=== PATIENT | male | born 1970 | race Two or more races ===

== ENCOUNTER 2020-07-28 19:28 | Inpatient (IN) | payer OTHER ==
[~2020-07-28] VITALS: Ht 172.7 cm; Wt 91.6 kg
[2020-07-28] MEDS ORDERED: ZINC SULFATE 220mg CAP or TAB PO ONE (19:45)
[2020-07-28] MEDS ORDERED: methylPREDNISolone SOD SUCC 125 MG/2 ML VL IV ONE (19:45)
[2020-07-28] MEDS ORDERED: CHOLECALCIFEROL (VITD3) 2,000 UNIT CAP PO ONE (19:45)
[2020-07-28] MEDS ORDERED: AZITHROMYCIN 500MG/ 250ML 250 ML IV ONE (19:45)
[2020-07-28] MEDS ORDERED: ASCORBIC ACID 500 MG TAB PO ONE (19:45)
[2020-07-28] MEDS ORDERED: REMDESIVIR PER PHARMACY 0 ML IV SCH (19:45)
[2020-07-28] MEDS ORDERED: ACETAMINOPHEN 650 mg PER 20.3 mL UD ONE (19:50)
[2020-07-28] MEDS ORDERED: ACETAMINOPHEN 650 mg PER 20.3 mL UD PO ONE (21:00)
[2020-07-28 21:13] LABS: Basophils # (auto) 0 10 ^3/uL (0-0.2); Basophils % (auto) 0.2 % (0.0-2.0); Eosinophils # (auto) 0 10 ^3/uL (0-0.8); Hematocrit 40.2 % (41.0-53.0); Hemoglobin 14.6 g/dL (13.5-17.5); Lymphocytes # (auto) 0.4 10 ^3/uL (0.4-5.4); Lymphocytes % (auto) 4.3 % (10.0-50.0); Mean Corpuscular Hemoglobin 31.8 pg (28.0-32.0); Mean Corpuscular Hgb Conc. 36.2 g/dL (32.0-36.0); Mean Corpuscular Volume 87.9 fL (80.0-100.0); Monocytes # (auto) 0.5 10 ^3/uL (0-1.3); Monocytes % (auto) 6.2 % (0.0-12.0); Neutrophils # (auto) 7.4 10 ^3/uL (1.6-8.6); Neutrophils % (auto) 89.3 % (37.0-80.0); Nucleated Red Blood Cells % 0.1 %; Platelet Count (auto) 220 10^3/uL (140-450); Red Blood Cells 4.57 10^6/uL (4.5-5.90); Red Cell Distribution Width 13.2 % (11.8-14.3); White Blood Cell 8.3 10^3/uL (4.4-10.8)
[2020-07-28 21:32] LABS: Albumin 2.6 g/dL (3.4-5.0); Anion Gap 8 (5-15); Blood Urea Nitrogen 11 mg/dL (7-18); Calcium 8.5 mg/dL (8.5-10.1); Carbon Dioxide 26 mmol/L (21-32); Chloride 93 mmol/L (98-107); Glucose 362 mg/dL (74-106); Potassium 3.2 mmol/L (3.5-5.1); Sodium 127 mmol/L (136-145)
[2020-07-28 21:41] LABS: Alanine Aminotransferase 58 U/L (16-61); Alkaline Phosphatase 68 U/L (45-117); Aspartate Aminotransferase 76 U/L (15-37); BUN/Creatinine Ratio 12.4; Bilirubin, Total 0.6 mg/dL (0.2-1.0); GFR African American 117 mL/min; GFR Non-African American 97 mL/min; Total Protein 6.7 g/dL (6.4-8.2)
[2020-07-28 21:42] LABS: CRP High Sensitivity > 19 mg/dL (< 0.3)
[2020-07-28] MEDS ORDERED: ONDANSETRON HCL 4 MG/2 ML VIAL IV PRN (21:45)
[2020-07-28] MEDS ORDERED: NITROGLYCERIN 0.4 MG SL TAB SL PRN (21:45)
[2020-07-28] MEDS ORDERED: ACETAMINOPHEN 500 MG TAB PO PRN ×2 (21:45)
[2020-07-28] MEDS ORDERED: DEXTROSE (50%) 50ML SYRG IV PRN ×2 (21:45→23:15)
[2020-07-28] MEDS ORDERED: LORazepam 0.5 MG TAB PO PRN (21:45)
[2020-07-28] MEDS ORDERED: INSULIN LANTUS (GLARGINE) 1 /0.01ml (100units/ml) SC ONE (21:45)
[2020-07-28] MEDS ORDERED: MORPHINE SULF INJ 2 MG/ML SYRINGE 1ML IV PRN (21:45)
[2020-07-28] MEDS ORDERED: DOCUSATE CALCIUM 240 MG CAP PO PRN (21:45)
[2020-07-28] MEDS ORDERED: hydrALAZINE HCL 20 MG/ML VL IV PRN (21:45)
[2020-07-28] MEDS ORDERED: InsuLIN R (HUMAN) 100 UNITS in SODIUM CHL 0.9% 99 ML IV SCH (21:45)
[2020-07-28] MEDS: DOXYCYCLINE 100MG/250ML 250 ML IV SCH (22:00)
[2020-07-28] MEDS: BUDESONIDE (INHALATION) 180 MCG IH IN SCH (22:00)
[2020-07-28] MEDS: ENOXAPARIN SOD 40 MG/0.4 ML SYRINGE SC SCH (22:00)
[2020-07-28] MEDS: SODIUM CHLORIDE 0.9% 1,000 ML IV SCH (22:15)
[2020-07-28] MEDS ORDERED: SODIUM CHLORIDE 0.9% 1,000 ML IV ONE (22:15)
[2020-07-28] MEDS ORDERED: ACCU-CHEK COMFORT CURVE STRIP VI SCH (22:30)
[2020-07-28] MEDS ORDERED: POTASSIUM CHL 20 Meq TABLET PO ONE (23:15)
[2020-07-29] MEDS: InsuLIN REG 1unit/0.01ml Soln (100units/ml) SC SCH ×6 (04:07→20:19)
[2020-07-29] MEDS: ACCU-CHEK COMFORT CURVE STRIP VI SCH ×6 (04:07→20:17)
[2020-07-29 07:05] LABS: Basophils # (auto) 0 10 ^3/uL (0-0.2); Basophils % (auto) 0.1 % (0.0-2.0); Eosinophils # (auto) 0 10 ^3/uL (0-0.8); Hematocrit 43.3 % (41.0-53.0); Hemoglobin 15.3 g/dL (13.5-17.5); Lymphocytes # (auto) 0.4 10 ^3/uL (0.4-5.4); Lymphocytes % (auto) 4.8 % (10.0-50.0); Mean Corpuscular Hemoglobin 31.3 pg (28.0-32.0); Mean Corpuscular Hgb Conc. 35.3 g/dL (32.0-36.0); Mean Corpuscular Volume 88.9 fL (80.0-100.0); Monocytes # (auto) 0.3 10 ^3/uL (0-1.3); Monocytes % (auto) 3.1 % (0.0-12.0); Neutrophils # (auto) 7.7 10 ^3/uL (1.6-8.6); Nucleated Red Blood Cells % 0.3 %; Platelet Count (auto) 222 10^3/uL (140-450); Red Blood Cells 4.87 10^6/uL (4.5-5.90); Red Cell Distribution Width 13.3 % (11.8-14.3); White Blood Cell 8.4 10^3/uL (4.4-10.8)
[2020-07-29 07:37] LABS: Chloride 102 mmol/L (98-107); Potassium 3.7 mmol/L (3.5-5.1); Sodium 134 mmol/L (136-145)
[2020-07-29 07:56] LABS: Alanine Aminotransferase 67 U/L (16-61); Albumin 2.4 g/dL (3.4-5.0); Alkaline Phosphatase 70 U/L (45-117); Anion Gap 5 (5-15); Aspartate Aminotransferase 85 U/L (15-37); BUN/Creatinine Ratio 14.3; Bilirubin, Total 0.4 mg/dL (0.2-1.0); Blood Urea Nitrogen 10 mg/dL (7-18); Calcium 8.4 mg/dL (8.5-10.1); Carbon Dioxide 27 mmol/L (21-32); GFR African American 155 mL/min; GFR Non-African American 128 mL/min; Glucose 230 mg/dL (74-106); Lactate Dehydrogenase 753 U/L (87-241); Magnesium 2.1 mg/dL (1.6-2.6); Total Protein 6.7 g/dL (6.4-8.2)
[2020-07-29 08:04] LABS: CRP High Sensitivity > 19.0 mg/dL (< 0.3)
[2020-07-29] MEDS ORDERED: INSULIN LANTUS (GLARGINE) 1 /0.01ml (100units/ml) SC SCH (10:00)
[2020-07-29] MEDS: BUDESONIDE (INHALATION) 180 MCG IH IN SCH ×2 (10:00→18:48)
[2020-07-29] MEDS: ASCORBIC ACID 1,000 MG TAB PO SCH (10:22)
[2020-07-29] MEDS: ZINC SULFATE 220mg CAP or TAB PO SCH (10:22)
[2020-07-29] MEDS: AZITHROMYCIN 500MG/ 250ML 250 ML IV SCH (10:22)
[2020-07-29] MEDS: CHOLECALCIFEROL (VITD3) 2,000 UNIT CAP PO SCH (10:22)
[2020-07-29] MEDS: DexAMETHasone SOD PHOS 10MG/1ML VIAL INJ IV SCH (10:22)
[2020-07-29] MEDS: PANTOPRAZOLE 40 MG TAB PO SCH (10:22)
[2020-07-29] MEDS: INSULIN LANTUS (GLARGINE) 1 /0.01ml (100units/ml) SC SCH ×2 (10:26→22:00)
[2020-07-29] MEDS: ENOXAPARIN SOD 40 MG/0.4 ML SYRINGE SC SCH ×2 (10:26→22:00)
[2020-07-29] MEDS: SODIUM CHLORIDE 0.9% 1,000 ML IV SCH (11:52)
[2020-07-29] MEDS: DOXYCYCLINE 100MG/250ML 250 ML IV SCH ×2 (11:52→22:00)
[2020-07-29] MEDS ORDERED: FUROSEMIDE 20 MG/2 ML VIAL IV ONE (12:45)
[2020-07-29] MEDS ORDERED: REMDESIVIR 200 MG in NS 210ml LOADING DOSE ADULT IV ONE (15:00)
[2020-07-29] MEDS ORDERED: METF-371 PO (15:26)
[2020-07-29] MEDS ORDERED: ATOR10TA52 PO (15:26)
[2020-07-29] MEDS ORDERED: IBUP600T28 PO (15:26)
[2020-07-29] MEDS ORDERED: AZIT250T9 PO (15:27)
[2020-07-29] MEDS ORDERED: ACET-1304 PO (15:51)
[2020-07-29] MEDS ORDERED: MULT1TAB73 PO (15:54)
[2020-07-29] MEDS ORDERED: DICL75TA3 PO (15:56)
[2020-07-30] MEDS: ACCU-CHEK COMFORT CURVE STRIP VI SCH ×6 (00:18→20:00)
[2020-07-30] MEDS: InsuLIN REG 1unit/0.01ml Soln (100units/ml) SC SCH ×6 (00:19→20:28)
[2020-07-30] MEDS: BUDESONIDE (INHALATION) 180 MCG IH IN SCH ×2 (06:41→22:00)
[2020-07-30 07:44] LABS: Potassium 3.1 mmol/L (3.5-5.1)
[2020-07-30 07:50] LABS: Basophils # (auto) 0.1 10 ^3/uL (0-0.2); Basophils % (auto) 0.5 % (0.0-2.0); Eosinophils # (auto) 0 10 ^3/uL (0-0.8); Hematocrit 40.6 % (41.0-53.0); Hemoglobin 14.3 g/dL (13.5-17.5); Lymphocytes # (auto) 0.7 10 ^3/uL (0.4-5.4); Mean Corpuscular Hgb Conc. 35.2 g/dL (32.0-36.0); Monocytes # (auto) 0.9 10 ^3/uL (0-1.3); Monocytes % (auto) 7.7 % (0.0-12.0); Neutrophils # (auto) 10.6 10 ^3/uL (1.6-8.6); Neutrophils % (auto) 85.8 % (37.0-80.0); Nucleated Red Blood Cells % 0.1 %; Platelet Count (auto) 317 10^3/uL (140-450); Red Blood Cells 4.61 10^6/uL (4.5-5.90); Red Cell Distribution Width 13.1 % (11.8-14.3); White Blood Cell 12.3 10^3/uL (4.4-10.8)
[2020-07-30 07:59] LABS: Albumin 2.1 g/dL (3.4-5.0); Bilirubin, Total 0.4 mg/dL (0.2-1.0); Calcium 8.5 mg/dL (8.5-10.1); Total Protein 6.2 g/dL (6.4-8.2)
[2020-07-30] MEDS: DOXYCYCLINE 100MG/250ML 250 ML IV SCH ×2 (10:00→22:00)
[2020-07-30] MEDS: DexAMETHasone SOD PHOS 10MG/1ML VIAL INJ IV SCH (10:00)
[2020-07-30] MEDS: PANTOPRAZOLE 40 MG TAB PO SCH (10:00)
[2020-07-30] MEDS: ZINC SULFATE 220mg CAP or TAB PO SCH (10:00)
[2020-07-30] MEDS: ENOXAPARIN SOD 40 MG/0.4 ML SYRINGE SC SCH ×2 (10:00→22:00)
[2020-07-30] MEDS: CHOLECALCIFEROL (VITD3) 2,000 UNIT CAP PO SCH (10:00)
[2020-07-30] MEDS: FUROSEMIDE 20 MG/2 ML VIAL IV SCH (10:00)
[2020-07-30] MEDS: AZITHROMYCIN 500MG/ 250ML 250 ML IV SCH (10:00)
[2020-07-30] MEDS: ASCORBIC ACID 1,000 MG TAB PO SCH (10:00)
[2020-07-30] MEDS: INSULIN LANTUS (GLARGINE) 1 /0.01ml (100units/ml) SC SCH ×2 (11:02→22:00)
[2020-07-30 13:52] VITALS: BP 91/39
[2020-07-30] MEDS ORDERED: POTASSIUM EFFERVESENT TAB 25 MEQ GT ONE (14:00)
[2020-07-30 14:06] VITALS: BP 104/60
[2020-07-30 15:05] VITALS: BP 99/41
[2020-07-30] MEDS: REMDESIVIR 100mg 100 MG in SODIUM CHL 0.9% 230 ML IV SCH (15:18)
[2020-07-31] MEDS: ACCU-CHEK COMFORT CURVE STRIP VI SCH ×6 (00:11→20:00)
[2020-07-31] MEDS: InsuLIN REG 1unit/0.01ml Soln (100units/ml) SC SCH ×6 (03:59→20:00)
[2020-07-31] MEDS: POTASSIUM EFFERVESENT TAB 25 MEQ GT SCH (08:51)
[2020-07-31] MEDS: DOXYCYCLINE 100MG/250ML 250 ML IV SCH ×2 (08:51→22:21)
[2020-07-31] MEDS: DexAMETHasone SOD PHOS 10MG/1ML VIAL INJ IV SCH (08:51)
[2020-07-31] MEDS: AZITHROMYCIN 500MG/ 250ML 250 ML IV SCH (08:51)
[2020-07-31] MEDS: FUROSEMIDE 20 MG/2 ML VIAL IV SCH (08:51)
[2020-07-31] MEDS: ZINC SULFATE 220mg CAP or TAB PO SCH (08:51)
[2020-07-31] MEDS: ENOXAPARIN SOD 40 MG/0.4 ML SYRINGE SC SCH ×2 (08:52→22:21)
[2020-07-31] MEDS: ASCORBIC ACID 1,000 MG TAB PO SCH (08:52)
[2020-07-31] MEDS: PANTOPRAZOLE 40 MG TAB PO SCH (08:52)
[2020-07-31] MEDS: CHOLECALCIFEROL (VITD3) 2,000 UNIT CAP PO SCH (08:52)
[2020-07-31] MEDS: INSULIN LANTUS (GLARGINE) 1 /0.01ml (100units/ml) SC SCH ×2 (10:02→22:22)
[2020-07-31] MEDS: ALBUTEROL SULF HFA 90MCG INH 200DOSE IN PRN ×2 (10:47→19:34)
[2020-07-31] MEDS: BUDESONIDE (INHALATION) 180 MCG IH IN SCH ×2 (10:47→18:18)
[2020-07-31 13:52] LABS: Basophils # (auto) 0 10 ^3/uL (0-0.2); Basophils % (auto) 0.1 % (0.0-2.0); Eosinophils # (auto) 0 10 ^3/uL (0-0.8); Hematocrit 38.6 % (41.0-53.0); Hemoglobin 13.8 g/dL (13.5-17.5); Lymphocytes # (auto) 0.3 10 ^3/uL (0.4-5.4); Lymphocytes % (auto) 2.9 % (10.0-50.0); Mean Corpuscular Hemoglobin 31.4 pg (28.0-32.0); Mean Corpuscular Hgb Conc. 35.7 g/dL (32.0-36.0); Mean Corpuscular Volume 87.9 fL (80.0-100.0); Monocytes # (auto) 0.7 10 ^3/uL (0-1.3); Monocytes % (auto) 6.3 % (0.0-12.0); Neutrophils # (auto) 9.6 10 ^3/uL (1.6-8.6); Neutrophils % (auto) 90.7 % (37.0-80.0); Platelet Count (auto) 358 10^3/uL (140-450); Red Blood Cells 4.39 10^6/uL (4.5-5.90); Red Cell Distribution Width 12.9 % (11.8-14.3); White Blood Cell 10.6 10^3/uL (4.4-10.8)
[2020-07-31] MEDS: REMDESIVIR 100mg 100 MG in SODIUM CHL 0.9% 230 ML IV SCH (14:40)
[2020-07-31 16:25] LABS: Albumin 2.3 g/dL (3.4-5.0); Bilirubin, Total 0.6 mg/dL (0.2-1.0); Calcium 8.2 mg/dL (8.5-10.1); Potassium 3.3 mmol/L (3.5-5.1); Total Protein 6.2 g/dL (6.4-8.2)
[2020-08-01] MEDS: ACCU-CHEK COMFORT CURVE STRIP VI SCH ×6 (04:00→20:23)
[2020-08-01] MEDS: InsuLIN REG 1unit/0.01ml Soln (100units/ml) SC SCH ×6 (04:00→20:23)
[2020-08-01 05:56] LABS: Hematocrit 39.1 % (41.0-53.0); Mean Corpuscular Hemoglobin 31.6 pg (28.0-32.0); Mean Corpuscular Hgb Conc. 35.9 g/dL (32.0-36.0); Platelet Count (auto) 354 10^3/uL (140-450); Red Blood Cells 4.44 10^6/uL (4.5-5.90); Red Cell Distribution Width 12.9 % (11.8-14.3); White Blood Cell 10.5 10^3/uL (4.4-10.8)
[2020-08-01 06:06] LABS: Basophils % (manual) 0 (0.0-2.0); Blast Cells 0; Eosinophils % (manual) 0 (0-7); Metamyelocytes % 0; Promyelocytes % 0; Reactive Lymphocytes 0
[2020-08-01 06:24] LABS: Potassium 3.3 mmol/L (3.5-5.1)
[2020-08-01] MEDS: ALBUTEROL SULF HFA 90MCG INH 200DOSE IN PRN ×2 (06:24→19:33)
[2020-08-01] MEDS: BUDESONIDE (INHALATION) 180 MCG IH IN SCH ×2 (06:24→19:33)
[2020-08-01 06:38] LABS: Band Neutrophils % (manual) 14; Lymphocytes % (manual) 3 (10.0-50.0); Monocytes % (manual) 3 (0-12); Myelocytes % 2
[2020-08-01 06:39] LABS: Albumin 2.3 g/dL (3.4-5.0); BUN/Creatinine Ratio 21.2; Bilirubin, Total 0.6 mg/dL (0.2-1.0); Calcium 8.4 mg/dL (8.5-10.1); Total Protein 6.1 g/dL (6.4-8.2)
[2020-08-01] MEDS: INSULIN LANTUS (GLARGINE) 1 /0.01ml (100units/ml) SC SCH ×2 (08:36→22:03)
[2020-08-01] MEDS: POTASSIUM EFFERVESENT TAB 25 MEQ GT SCH (11:25)
[2020-08-01] MEDS: FUROSEMIDE 20 MG/2 ML VIAL IV SCH (11:26)
[2020-08-01] MEDS: DexAMETHasone SOD PHOS 10MG/1ML VIAL INJ IV SCH (11:26)
[2020-08-01] MEDS: PANTOPRAZOLE 40 MG TAB PO SCH (11:26)
[2020-08-01] MEDS: ZINC SULFATE 220mg CAP or TAB PO SCH (11:26)
[2020-08-01] MEDS: ASCORBIC ACID 1,000 MG TAB PO SCH (11:26)
[2020-08-01] MEDS: ENOXAPARIN SOD 40 MG/0.4 ML SYRINGE SC SCH ×2 (11:26→21:53)
[2020-08-01] MEDS: CHOLECALCIFEROL (VITD3) 2,000 UNIT CAP PO SCH (11:26)
[2020-08-01] MEDS: AZITHROMYCIN 500MG/ 250ML 250 ML IV SCH (11:27)
[2020-08-01] MEDS: DOXYCYCLINE 100MG/250ML 250 ML IV SCH ×2 (11:35→21:53)
[2020-08-01] MEDS: REMDESIVIR 100mg 100 MG in SODIUM CHL 0.9% 230 ML IV SCH (15:50)
[2020-08-02] MEDS: ACCU-CHEK COMFORT CURVE STRIP VI SCH ×6 (00:56→19:56)
[2020-08-02] MEDS: ALBUTEROL SULF HFA 90MCG INH 200DOSE IN PRN ×2 (02:23→20:13)
[2020-08-02] MEDS: InsuLIN REG 1unit/0.01ml Soln (100units/ml) SC SCH ×6 (04:00→20:44)
[2020-08-02] MEDS: BUDESONIDE (INHALATION) 180 MCG IH IN SCH ×2 (06:00→18:39)
[2020-08-02 06:01] LABS: Basophils # (auto) 0 10 ^3/uL (0-0.2); Basophils % (auto) 0.3 % (0.0-2.0); Eosinophils # (auto) 0 10 ^3/uL (0-0.8); Eosinophils % (auto) 0.4 % (0.0-7.0); Hematocrit 40.6 % (41.0-53.0); Hemoglobin 14.3 g/dL (13.5-17.5); Lymphocytes # (auto) 0.4 10 ^3/uL (0.4-5.4); Lymphocytes % (auto) 4.4 % (10.0-50.0); Mean Corpuscular Hemoglobin 31.2 pg (28.0-32.0); Mean Corpuscular Hgb Conc. 35.1 g/dL (32.0-36.0); Mean Corpuscular Volume 88.9 fL (80.0-100.0); Monocytes # (auto) 0.5 10 ^3/uL (0-1.3); Monocytes % (auto) 5.1 % (0.0-12.0); Neutrophils # (auto) 8.6 10 ^3/uL (1.6-8.6); Neutrophils % (auto) 89.8 % (37.0-80.0); Platelet Count (auto) 332 10^3/uL (140-450); Red Blood Cells 4.57 10^6/uL (4.5-5.90); Red Cell Distribution Width 13.1 % (11.8-14.3); White Blood Cell 9.5 10^3/uL (4.4-10.8)
[2020-08-02 06:22] LABS: Calcium 8.4 mg/dL (8.5-10.1); Potassium 3.7 mmol/L (3.5-5.1)
[2020-08-02 06:28] LABS: Albumin 2.1 g/dL (3.4-5.0); BUN/Creatinine Ratio 33.3; Bilirubin, Total 0.5 mg/dL (0.2-1.0); Total Protein 5.9 g/dL (6.4-8.2)
[2020-08-02] MEDS: ASCORBIC ACID 1,000 MG TAB PO SCH (09:20)
[2020-08-02] MEDS: ZINC SULFATE 220mg CAP or TAB PO SCH (09:20)
[2020-08-02] MEDS: ENOXAPARIN SOD 40 MG/0.4 ML SYRINGE SC SCH ×2 (09:20→22:41)
[2020-08-02] MEDS: INSULIN LANTUS (GLARGINE) 1 /0.01ml (100units/ml) SC SCH ×2 (09:20→22:48)
[2020-08-02] MEDS: DOXYCYCLINE 100MG/250ML 250 ML IV SCH (09:20)
[2020-08-02] MEDS: CHOLECALCIFEROL (VITD3) 2,000 UNIT CAP PO SCH (09:20)
[2020-08-02] MEDS: POTASSIUM EFFERVESENT TAB 25 MEQ GT SCH (09:21)
[2020-08-02] MEDS: PANTOPRAZOLE 40 MG TAB PO SCH (09:21)
[2020-08-02] MEDS: DexAMETHasone SOD PHOS 10MG/1ML VIAL INJ IV SCH (09:21)
[2020-08-02] MEDS: FUROSEMIDE 20 MG/2 ML VIAL IV SCH (09:21)
[2020-08-02 12:54] LABS: CRP High Sensitivity 11.9 mg/dL (< 0.3)
[2020-08-02] MEDS: REMDESIVIR 100mg 100 MG in SODIUM CHL 0.9% 230 ML IV SCH (15:25)
[2020-08-02] MEDS ORDERED: ACETAMINOPHEN 650 mg PER 20.3 mL UD PO ONE (17:30)
[2020-08-02] MEDS ORDERED: methylPREDNISolone SOD SUCC 40 MG/ML VL IV ONE (17:30)
[2020-08-02] MEDS ORDERED: diphenhdrAMINE HCL 50 MG/1 ML VL IV ONE (17:30)
[2020-08-02] MEDS ORDERED: TOCILIZUMAB 400 MG in SODIUM CHL 0.9% 80 ML IV ONE (18:00)
[2020-08-03] MEDS: InsuLIN REG 1unit/0.01ml Soln (100units/ml) SC SCH ×6 (04:16→20:20)
[2020-08-03] MEDS: ACCU-CHEK COMFORT CURVE STRIP VI SCH ×6 (04:16→20:21)
[2020-08-03 06:14] LABS: Basophils # (auto) 0 10 ^3/uL (0-0.2); Basophils % (auto) 0.1 % (0.0-2.0); Eosinophils # (auto) 0 10 ^3/uL (0-0.8); Eosinophils % (auto) 0.1 % (0.0-7.0); Hematocrit 42.2 % (41.0-53.0); Lymphocytes # (auto) 0.4 10 ^3/uL (0.4-5.4); Lymphocytes % (auto) 4.8 % (10.0-50.0); Mean Corpuscular Hemoglobin 31.6 pg (28.0-32.0); Mean Corpuscular Hgb Conc. 35.6 g/dL (32.0-36.0); Mean Corpuscular Volume 88.9 fL (80.0-100.0); Monocytes # (auto) 0.4 10 ^3/uL (0-1.3); Monocytes % (auto) 5.8 % (0.0-12.0); Neutrophils # (auto) 6.9 10 ^3/uL (1.6-8.6); Neutrophils % (auto) 89.2 % (37.0-80.0); Platelet Count (auto) 394 10^3/uL (140-450); Red Blood Cells 4.75 10^6/uL (4.5-5.90); Red Cell Distribution Width 12.9 % (11.8-14.3); White Blood Cell 7.7 10^3/uL (4.4-10.8)
[2020-08-03 06:29] LABS: BUN/Creatinine Ratio 33.3; Calcium 8.6 mg/dL (8.5-10.1); Potassium 4.2 mmol/L (3.5-5.1)
[2020-08-03] MEDS: POTASSIUM EFFERVESENT TAB 25 MEQ GT SCH (09:59)
[2020-08-03] MEDS: ZINC SULFATE 220mg CAP or TAB PO SCH (10:00)
[2020-08-03] MEDS: INSULIN LANTUS (GLARGINE) 1 /0.01ml (100units/ml) SC SCH ×2 (10:00→23:13)
[2020-08-03] MEDS: CHOLECALCIFEROL (VITD3) 2,000 UNIT CAP PO SCH (10:00)
[2020-08-03] MEDS: BUDESONIDE (INHALATION) 180 MCG IH IN SCH ×2 (10:00→18:50)
[2020-08-03] MEDS: ASCORBIC ACID 1,000 MG TAB PO SCH (10:00)
[2020-08-03] MEDS: ENOXAPARIN SOD 40 MG/0.4 ML SYRINGE SC SCH ×2 (10:00→23:13)
[2020-08-03] MEDS: PANTOPRAZOLE 40 MG TAB PO SCH (10:00)
[2020-08-03] MEDS: DexAMETHasone SOD PHOS 10MG/1ML VIAL INJ IV SCH (10:20)
[2020-08-03] MEDS ORDERED: FUROSEMIDE 40 MG/4 ML VIAL ONE (10:26)
[2020-08-03] MEDS: FUROSEMIDE 20 MG/2 ML VIAL IV SCH (10:30)
[2020-08-03] MEDS ORDERED: ACETAMINOPHEN 650 mg PER 20.3 mL UD PO ONE (12:30)
[2020-08-03] MEDS ORDERED: diphenhdrAMINE HCL 50 MG/1 ML VL IV ONE (12:30)
[2020-08-03] MEDS ORDERED: methylPREDNISolone SOD SUCC 40 MG/ML VL IV ONE (12:30)
[2020-08-03] MEDS ORDERED: TOCILIZUMAB 400 MG in SODIUM CHL 0.9% 80 ML IV ONE (13:00)
[2020-08-03] MEDS: ALBUTEROL SULF HFA 90MCG INH 200DOSE IN PRN (19:12)
[2020-08-04] MEDS: ACCU-CHEK COMFORT CURVE STRIP VI SCH ×7 (00:09→23:40)
[2020-08-04] MEDS: InsuLIN REG 1unit/0.01ml Soln (100units/ml) SC SCH ×7 (00:17→23:39)
[2020-08-04 06:13] LABS: Basophils # (auto) 0 10 ^3/uL (0-0.2); Basophils % (auto) 0.1 % (0.0-2.0); Eosinophils # (auto) 0 10 ^3/uL (0-0.8); Eosinophils % (auto) 0.1 % (0.0-7.0); Hematocrit 43.9 % (41.0-53.0); Hemoglobin 15.8 g/dL (13.5-17.5); Lymphocytes # (auto) 0.4 10 ^3/uL (0.4-5.4); Lymphocytes % (auto) 4.2 % (10.0-50.0); Mean Corpuscular Hemoglobin 32.2 pg (28.0-32.0); Mean Corpuscular Volume 89.5 fL (80.0-100.0); Monocytes # (auto) 0.4 10 ^3/uL (0-1.3); Monocytes % (auto) 4.5 % (0.0-12.0); Neutrophils # (auto) 8.9 10 ^3/uL (1.6-8.6); Neutrophils % (auto) 91.1 % (37.0-80.0); Platelet Count (auto) 448 10^3/uL (140-450); Red Blood Cells 4.91 10^6/uL (4.5-5.90); Red Cell Distribution Width 13.2 % (11.8-14.3); White Blood Cell 9.8 10^3/uL (4.4-10.8)
[2020-08-04 06:36] LABS: Potassium 4.2 mmol/L (3.5-5.1)
[2020-08-04] MEDS: ALBUTEROL SULF HFA 90MCG INH 200DOSE IN PRN (06:48)
[2020-08-04] MEDS: BUDESONIDE (INHALATION) 180 MCG IH IN SCH ×3 (06:48→22:43)
[2020-08-04 07:18] LABS: BUN/Creatinine Ratio 38.2; Calcium 8.4 mg/dL (8.5-10.1)
[2020-08-04] MEDS ORDERED: FUROSEMIDE 40 MG/4 ML VIAL ONE (08:34)
[2020-08-04] MEDS: POTASSIUM EFFERVESENT TAB 25 MEQ GT SCH (08:51)
[2020-08-04] MEDS: PANTOPRAZOLE 40 MG TAB PO SCH (08:52)
[2020-08-04] MEDS: FUROSEMIDE 20 MG/2 ML VIAL IV SCH (08:52)
[2020-08-04] MEDS: ZINC SULFATE 220mg CAP or TAB PO SCH (08:52)
[2020-08-04] MEDS: DexAMETHasone SOD PHOS 10MG/1ML VIAL INJ IV SCH (08:52)
[2020-08-04] MEDS: CHOLECALCIFEROL (VITD3) 2,000 UNIT CAP PO SCH (08:52)
[2020-08-04] MEDS: ASCORBIC ACID 1,000 MG TAB PO SCH (08:52)
[2020-08-04] MEDS: ENOXAPARIN SOD 40 MG/0.4 ML SYRINGE SC SCH ×2 (08:53→21:49)
[2020-08-04] MEDS: INSULIN LANTUS (GLARGINE) 1 /0.01ml (100units/ml) SC SCH ×2 (08:53→21:48)
[2020-08-04] MEDS ORDERED: SODIUM CHLORIDE 0.9% 500 ML IV ONE (22:30)
[2020-08-05] MEDS: ACCU-CHEK COMFORT CURVE STRIP VI SCH ×5 (03:59→20:47)
[2020-08-05] MEDS: InsuLIN REG 1unit/0.01ml Soln (100units/ml) SC SCH ×5 (04:00→20:48)
[2020-08-05 05:51] LABS: Basophils # (auto) 0 10 ^3/uL (0-0.2); Basophils % (auto) 0.1 % (0.0-2.0); Eosinophils # (auto) 0.2 10 ^3/uL (0-0.8); Eosinophils % (auto) 2.4 % (0.0-7.0); Hematocrit 42.4 % (41.0-53.0); Hemoglobin 14.8 g/dL (13.5-17.5); Lymphocytes # (auto) 0.8 10 ^3/uL (0.4-5.4); Lymphocytes % (auto) 10.8 % (10.0-50.0); Mean Corpuscular Hemoglobin 31.9 pg (28.0-32.0); Mean Corpuscular Hgb Conc. 34.8 g/dL (32.0-36.0); Mean Corpuscular Volume 91.6 fL (80.0-100.0); Monocytes # (auto) 0.6 10 ^3/uL (0-1.3); Monocytes % (auto) 7.1 % (0.0-12.0); Neutrophils # (auto) 6.3 10 ^3/uL (1.6-8.6); Neutrophils % (auto) 79.6 % (37.0-80.0); Platelet Count (auto) 332 10^3/uL (140-450); Red Blood Cells 4.63 10^6/uL (4.5-5.90); Red Cell Distribution Width 13.1 % (11.8-14.3); White Blood Cell 7.9 10^3/uL (4.4-10.8)
[2020-08-05] MEDS ORDERED: SODIUM CHLORIDE 0.9% 500 ML IV ONE (07:00)
[2020-08-05] MEDS: ALBUTEROL SULF HFA 90MCG INH 200DOSE IN PRN ×2 (07:49→23:08)
[2020-08-05] MEDS: BUDESONIDE (INHALATION) 180 MCG IH IN SCH ×2 (07:49→23:08)
[2020-08-05 09:44] LABS: BUN/Creatinine Ratio 36.2; Calcium 7.7 mg/dL (8.5-10.1); Potassium 4.4 mmol/L (3.5-5.1)
[2020-08-05] MEDS: DexAMETHasone SOD PHOS 10MG/1ML VIAL INJ IV SCH (10:18)
[2020-08-05] MEDS: POTASSIUM EFFERVESENT TAB 25 MEQ GT SCH (10:18)
[2020-08-05] MEDS: FUROSEMIDE 20 MG/2 ML VIAL IV SCH (10:19)
[2020-08-05] MEDS: ASCORBIC ACID 1,000 MG TAB PO SCH (10:19)
[2020-08-05] MEDS: ENOXAPARIN SOD 40 MG/0.4 ML SYRINGE SC SCH ×2 (10:19→22:10)
[2020-08-05] MEDS: CHOLECALCIFEROL (VITD3) 2,000 UNIT CAP PO SCH (10:19)
[2020-08-05] MEDS: PANTOPRAZOLE 40 MG TAB PO SCH (10:19)
[2020-08-05] MEDS: ZINC SULFATE 220mg CAP or TAB PO SCH (10:19)
[2020-08-05] MEDS: INSULIN LANTUS (GLARGINE) 1 /0.01ml (100units/ml) SC SCH ×2 (10:24→22:09)
[2020-08-06] MEDS: ACCU-CHEK COMFORT CURVE STRIP VI SCH ×4 (00:17→12:37)
[2020-08-06] MEDS ORDERED: SODIUM CHLORIDE 0.9% 500 ML IV ONE ×2 (01:30→16:30)
[2020-08-06] MEDS: InsuLIN REG 1unit/0.01ml Soln (100units/ml) SC SCH ×4 (05:25→12:41)
[2020-08-06 06:09] LABS: Basophils # (auto) 0 10 ^3/uL (0-0.2); Basophils % (auto) 0.2 % (0.0-2.0); Eosinophils # (auto) 0.2 10 ^3/uL (0-0.8); Eosinophils % (auto) 3.5 % (0.0-7.0); Hematocrit 44.7 % (41.0-53.0); Hemoglobin 15.4 g/dL (13.5-17.5); Lymphocytes # (auto) 0.9 10 ^3/uL (0.4-5.4); Lymphocytes % (auto) 12.1 % (10.0-50.0); Mean Corpuscular Hemoglobin 31.1 pg (28.0-32.0); Mean Corpuscular Hgb Conc. 34.5 g/dL (32.0-36.0); Mean Corpuscular Volume 90.2 fL (80.0-100.0); Monocytes # (auto) 0.3 10 ^3/uL (0-1.3); Monocytes % (auto) 4.1 % (0.0-12.0); Neutrophils # (auto) 5.7 10 ^3/uL (1.6-8.6); Neutrophils % (auto) 80.1 % (37.0-80.0); Nucleated Red Blood Cells % 0.1 %; Platelet Count (auto) 325 10^3/uL (140-450); Red Blood Cells 4.95 10^6/uL (4.5-5.90); Red Cell Distribution Width 12.8 % (11.8-14.3); White Blood Cell 7.1 10^3/uL (4.4-10.8)
[2020-08-06 06:23] LABS: BUN/Creatinine Ratio 22.6; Calcium 7.8 mg/dL (8.5-10.1)
[2020-08-06] MEDS: BUDESONIDE (INHALATION) 180 MCG IH IN SCH ×2 (06:43→17:56)
[2020-08-06] MEDS: ALBUTEROL SULF HFA 90MCG INH 200DOSE IN PRN ×2 (06:45→17:56)
[2020-08-06] MEDS: INSULIN LANTUS (GLARGINE) 1 /0.01ml (100units/ml) SC SCH ×2 (08:37→21:48)
[2020-08-06] MEDS: DexAMETHasone SOD PHOS 10MG/1ML VIAL INJ IV SCH (09:03)
[2020-08-06] MEDS: FUROSEMIDE 20 MG/2 ML VIAL IV SCH (09:03)
[2020-08-06] MEDS: ZINC SULFATE 220mg CAP or TAB PO SCH (09:03)
[2020-08-06] MEDS: CHOLECALCIFEROL (VITD3) 2,000 UNIT CAP PO SCH (09:04)
[2020-08-06] MEDS: ENOXAPARIN SOD 40 MG/0.4 ML SYRINGE SC SCH ×2 (09:04→21:49)
[2020-08-06] MEDS: PANTOPRAZOLE 40 MG TAB PO SCH (09:04)
[2020-08-06] MEDS: ASCORBIC ACID 1,000 MG TAB PO SCH (09:04)
[2020-08-06] MEDS: POTASSIUM EFFERVESENT TAB 25 MEQ PO SCH (09:07)
[2020-08-06] MEDS ORDERED: InsuLIN REG 1unit/0.01ml Soln (100units/ml) SC ONE (17:00)
[2020-08-06] MEDS ORDERED: ACCU-CHEK COMFORT CURVE STRIP VI ONE (17:00)
[2020-08-07] MEDS: ALBUTEROL SULF HFA 90MCG INH 200DOSE IN PRN ×2 (06:54→20:11)
[2020-08-07] MEDS: BUDESONIDE (INHALATION) 180 MCG IH IN SCH ×2 (06:54→20:11)
[2020-08-07] MEDS: PANTOPRAZOLE 40 MG TAB PO SCH (10:31)
[2020-08-07] MEDS: POTASSIUM EFFERVESENT TAB 25 MEQ PO SCH (10:31)
[2020-08-07] MEDS: CHOLECALCIFEROL (VITD3) 2,000 UNIT CAP PO SCH (10:31)
[2020-08-07] MEDS: DexAMETHasone SOD PHOS 10MG/1ML VIAL INJ IV SCH (10:31)
[2020-08-07] MEDS: INSULIN LANTUS (GLARGINE) 1 /0.01ml (100units/ml) SC SCH ×2 (10:31→22:44)
[2020-08-07] MEDS: ZINC SULFATE 220mg CAP or TAB PO SCH (10:31)
[2020-08-07] MEDS: ASCORBIC ACID 1,000 MG TAB PO SCH (10:31)
[2020-08-07] MEDS: ENOXAPARIN SOD 40 MG/0.4 ML SYRINGE SC SCH ×2 (10:32→22:44)
[2020-08-07] MEDS ORDERED: Ensure HIGH Protein Chocolate 8oz Bottle PO SCH (12:00)
[2020-08-07] MEDS: Glucerna Carbsteady SHAKE Vanilla 8oz PO SCH (18:49)
[2020-08-08] MEDS: ALBUTEROL SULF HFA 90MCG INH 200DOSE IN PRN ×2 (07:59→22:35)
[2020-08-08] MEDS: BUDESONIDE (INHALATION) 180 MCG IH IN SCH ×2 (07:59→22:00)
[2020-08-08] MEDS: PANTOPRAZOLE 40 MG TAB PO SCH (08:26)
[2020-08-08] MEDS: CHOLECALCIFEROL (VITD3) 2,000 UNIT CAP PO SCH (08:26)
[2020-08-08] MEDS: ZINC SULFATE 220mg CAP or TAB PO SCH (08:26)
[2020-08-08] MEDS: ASCORBIC ACID 1,000 MG TAB PO SCH (08:26)
[2020-08-08] MEDS: Glucerna Carbsteady SHAKE Vanilla 8oz PO SCH ×3 (08:26→18:06)
[2020-08-08] MEDS: DexAMETHasone SOD PHOS 10MG/1ML VIAL INJ IV SCH (08:26)
[2020-08-08] MEDS: POTASSIUM EFFERVESENT TAB 25 MEQ PO SCH (08:26)
[2020-08-08] MEDS: INSULIN LANTUS (GLARGINE) 1 /0.01ml (100units/ml) SC SCH ×2 (08:55→21:59)
[2020-08-08] MEDS: ENOXAPARIN SOD 40 MG/0.4 ML SYRINGE SC SCH ×2 (08:55→21:56)
[2020-08-08 09:11] LABS: Basophils # (auto) 0 10 ^3/uL (0-0.2); Basophils % (auto) 0.4 % (0.0-2.0); Eosinophils # (auto) 0.2 10 ^3/uL (0-0.8); Eosinophils % (auto) 2.8 % (0.0-7.0); Hematocrit 46.1 % (41.0-53.0); Lymphocytes # (auto) 1.2 10 ^3/uL (0.4-5.4); Lymphocytes % (auto) 14.6 % (10.0-50.0); Mean Corpuscular Hemoglobin 31.1 pg (28.0-32.0); Mean Corpuscular Hgb Conc. 34.6 g/dL (32.0-36.0); Mean Corpuscular Volume 89.8 fL (80.0-100.0); Monocytes # (auto) 0.5 10 ^3/uL (0-1.3); Monocytes % (auto) 6.3 % (0.0-12.0); Neutrophils # (auto) 6.3 10 ^3/uL (1.6-8.6); Neutrophils % (auto) 75.9 % (37.0-80.0); Nucleated Red Blood Cells % 1.2 %; Platelet Count (auto) 282 10^3/uL (140-450); Red Blood Cells 5.14 10^6/uL (4.5-5.90); Red Cell Distribution Width 12.7 % (11.8-14.3); White Blood Cell 8.4 10^3/uL (4.4-10.8)
[2020-08-08 09:29] LABS: Albumin 3.1 g/dL (3.4-5.0); Potassium 4.3 mmol/L (3.5-5.1)
[2020-08-08 09:33] LABS: Bilirubin, Total 0.6 mg/dL (0.2-1.0); Total Protein 6.5 g/dL (6.4-8.2)
[2020-08-08 16:00] VITALS: BP 143/70
[2020-08-08 16:15] VITALS: BP 140/70
[2020-08-08 17:21] VITALS: BP 138/78
[2020-08-09] MEDS: BUDESONIDE (INHALATION) 180 MCG IH IN SCH ×2 (06:58→22:00)
[2020-08-09] MEDS: ALBUTEROL SULF HFA 90MCG INH 200DOSE IN PRN ×2 (06:58→22:31)
[2020-08-09 08:15] LABS: Basophils # (auto) 0 10 ^3/uL (0-0.2); Basophils % (auto) 0.2 % (0.0-2.0); Eosinophils # (auto) 0.2 10 ^3/uL (0-0.8); Eosinophils % (auto) 2.3 % (0.0-7.0); Hematocrit 41.1 % (41.0-53.0); Hemoglobin 14.5 g/dL (13.5-17.5); Lymphocytes # (auto) 1.3 10 ^3/uL (0.4-5.4); Lymphocytes % (auto) 15.7 % (10.0-50.0); Mean Corpuscular Hemoglobin 31.9 pg (28.0-32.0); Mean Corpuscular Hgb Conc. 35.4 g/dL (32.0-36.0); Monocytes # (auto) 0.7 10 ^3/uL (0-1.3); Monocytes % (auto) 7.9 % (0.0-12.0); Neutrophils # (auto) 6.3 10 ^3/uL (1.6-8.6); Neutrophils % (auto) 73.9 % (37.0-80.0); Platelet Count (auto) 206 10^3/uL (140-450); Red Blood Cells 4.57 10^6/uL (4.5-5.90); Red Cell Distribution Width 12.9 % (11.8-14.3); White Blood Cell 8.5 10^3/uL (4.4-10.8)
[2020-08-09 08:19] LABS: Calcium 8.5 mg/dL (8.5-10.1); Potassium 4.1 mmol/L (3.5-5.1)
[2020-08-09] MEDS: Glucerna Carbsteady SHAKE Vanilla 8oz PO SCH ×3 (09:17→17:56)
[2020-08-09] MEDS: DexAMETHasone SOD PHOS 10MG/1ML VIAL INJ IV SCH (09:25)
[2020-08-09] MEDS: POTASSIUM EFFERVESENT TAB 25 MEQ PO SCH (09:26)
[2020-08-09] MEDS: ZINC SULFATE 220mg CAP or TAB PO SCH (09:26)
[2020-08-09] MEDS: PANTOPRAZOLE 40 MG TAB PO SCH (09:27)
[2020-08-09] MEDS: ASCORBIC ACID 1,000 MG TAB PO SCH (09:27)
[2020-08-09] MEDS: CHOLECALCIFEROL (VITD3) 2,000 UNIT CAP PO SCH (09:27)
[2020-08-09] MEDS: INSULIN LANTUS (GLARGINE) 1 /0.01ml (100units/ml) SC SCH ×2 (09:44→21:49)
[2020-08-09 16:00] VITALS: BP_SYST 100; BP_SYST 139; BP_SYST 146; BP_DIAS 57; BP_DIAS 65; BP_DIAS 71
[2020-08-10] VITALS: BP 117/66
[2020-08-10] MEDS: ALBUTEROL SULF HFA 90MCG INH 200DOSE IN PRN ×2 (06:45→20:30)
[2020-08-10] MEDS: BUDESONIDE (INHALATION) 180 MCG IH IN SCH ×2 (06:45→20:30)
[2020-08-10 07:35] LABS: Basophils # (auto) 0 10 ^3/uL (0-0.2); Basophils % (auto) 0.3 % (0.0-2.0); Eosinophils # (auto) 0.1 10 ^3/uL (0-0.8); Eosinophils % (auto) 1.8 % (0.0-7.0); Hematocrit 37.8 % (41.0-53.0); Hemoglobin 13.4 g/dL (13.5-17.5); Lymphocytes # (auto) 1.3 10 ^3/uL (0.4-5.4); Lymphocytes % (auto) 15.9 % (10.0-50.0); Mean Corpuscular Hemoglobin 31.5 pg (28.0-32.0); Mean Corpuscular Hgb Conc. 35.4 g/dL (32.0-36.0); Monocytes # (auto) 0.8 10 ^3/uL (0-1.3); Monocytes % (auto) 9.5 % (0.0-12.0); Neutrophils # (auto) 5.9 10 ^3/uL (1.6-8.6); Neutrophils % (auto) 72.5 % (37.0-80.0); Nucleated Red Blood Cells % 0.1 %; Platelet Count (auto) 215 10^3/uL (140-450); Red Blood Cells 4.24 10^6/uL (4.5-5.90); Red Cell Distribution Width 12.9 % (11.8-14.3); White Blood Cell 8.1 10^3/uL (4.4-10.8)
[2020-08-10 07:48] LABS: Calcium 8.1 mg/dL (8.5-10.1); Potassium 3.7 mmol/L (3.5-5.1)
[2020-08-10 07:50] LABS: BUN/Creatinine Ratio 23.1
[2020-08-10 08:00] VITALS: BP 123/68
[2020-08-10] MEDS: Glucerna Carbsteady SHAKE Vanilla 8oz PO SCH ×3 (08:00→18:01)
[2020-08-10] MEDS: POTASSIUM EFFERVESENT TAB 25 MEQ PO SCH (09:38)
[2020-08-10] MEDS: ASCORBIC ACID 1,000 MG TAB PO SCH (09:39)
[2020-08-10] MEDS: DexAMETHasone SOD PHOS 10MG/1ML VIAL INJ IV SCH (09:39)
[2020-08-10] MEDS: ZINC SULFATE 220mg CAP or TAB PO SCH (09:39)
[2020-08-10] MEDS: PANTOPRAZOLE 40 MG TAB PO SCH (09:39)
[2020-08-10] MEDS: CHOLECALCIFEROL (VITD3) 2,000 UNIT CAP PO SCH (09:39)
[2020-08-10] MEDS: INSULIN LANTUS (GLARGINE) 1 /0.01ml (100units/ml) SC SCH ×2 (09:54→21:30)
[2020-08-10 16:00] VITALS: BP 105/63
[2020-08-11] VITALS: BP 96/55
[2020-08-11 06:07] LABS: Basophils # (auto) 0 10 ^3/uL (0-0.2); Basophils % (auto) 0.3 % (0.0-2.0); Eosinophils # (auto) 0 10 ^3/uL (0-0.8); Eosinophils % (auto) 0.5 % (0.0-7.0); Hematocrit 38.5 % (41.0-53.0); Hemoglobin 13.6 g/dL (13.5-17.5); Lymphocytes % (auto) 11.7 % (10.0-50.0); Mean Corpuscular Hemoglobin 31.4 pg (28.0-32.0); Mean Corpuscular Hgb Conc. 35.2 g/dL (32.0-36.0); Monocytes # (auto) 0.8 10 ^3/uL (0-1.3); Neutrophils # (auto) 6.4 10 ^3/uL (1.6-8.6); Neutrophils % (auto) 77.5 % (37.0-80.0); Nucleated Red Blood Cells % 0.1 %; Platelet Count (auto) 184 10^3/uL (140-450); Red Blood Cells 4.33 10^6/uL (4.5-5.90); Red Cell Distribution Width 12.6 % (11.8-14.3); White Blood Cell 8.2 10^3/uL (4.4-10.8)
[2020-08-11 06:32] LABS: Potassium 4.4 mmol/L (3.5-5.1)
[2020-08-11 06:54] LABS: Calcium 8.6 mg/dL (8.5-10.1)
[2020-08-11] MEDS: BUDESONIDE (INHALATION) 180 MCG IH IN SCH ×2 (07:30→18:51)
[2020-08-11] MEDS: ALBUTEROL SULF HFA 90MCG INH 200DOSE IN PRN ×2 (07:30→18:51)
[2020-08-11 08:00] VITALS: BP 101/64
[2020-08-11] MEDS: Glucerna Carbsteady SHAKE Vanilla 8oz PO SCH ×3 (09:45→17:37)
[2020-08-11] MEDS: INSULIN LANTUS (GLARGINE) 1 /0.01ml (100units/ml) SC SCH ×2 (09:48→21:53)
[2020-08-11] MEDS: CHOLECALCIFEROL (VITD3) 2,000 UNIT CAP PO SCH (09:49)
[2020-08-11] MEDS: POTASSIUM EFFERVESENT TAB 25 MEQ PO SCH (09:49)
[2020-08-11] MEDS: PANTOPRAZOLE 40 MG TAB PO SCH (09:49)
[2020-08-11] MEDS: ZINC SULFATE 220mg CAP or TAB PO SCH (09:49)
[2020-08-11] MEDS: DexAMETHasone SOD PHOS 10MG/1ML VIAL INJ IV SCH (09:49)
[2020-08-11] MEDS: ASCORBIC ACID 1,000 MG TAB PO SCH (09:49)
[2020-08-11] MEDS ORDERED: FUROSEMIDE 20 MG/2 ML VIAL IV ONE (11:30)
[2020-08-11 16:00] VITALS: BP 103/62
[2020-08-11 23:46] VITALS: BP 120/70
[2020-08-12 08:00] VITALS: BP 102/61
[2020-08-12] MEDS: BUDESONIDE (INHALATION) 180 MCG IH IN SCH (08:03)
[2020-08-12] MEDS: ALBUTEROL SULF HFA 90MCG INH 200DOSE IN PRN (08:03)
[2020-08-12 08:06] LABS: Basophils # (auto) 0 10 ^3/uL (0-0.2); Basophils % (auto) 0.5 % (0.0-2.0); Eosinophils # (auto) 0.2 10 ^3/uL (0-0.8); Eosinophils % (auto) 1.9 % (0.0-7.0); Lymphocytes # (auto) 1.2 10 ^3/uL (0.4-5.4); Lymphocytes % (auto) 14.6 % (10.0-50.0); Monocytes # (auto) 0.9 10 ^3/uL (0-1.3); Monocytes % (auto) 10.7 % (0.0-12.0); Neutrophils % (auto) 72.3 % (37.0-80.0); Nucleated Red Blood Cells % 0.1 %; White Blood Cell 8.4 10^3/uL (4.4-10.8)
[2020-08-12 08:07] LABS: Hematocrit 39.7 % (41.0-53.0); Hemoglobin 13.8 g/dL (13.5-17.5); Mean Corpuscular Hemoglobin 31.1 pg (28.0-32.0); Mean Corpuscular Hgb Conc. 34.9 g/dL (32.0-36.0); Platelet Count (auto) 176 10^3/uL (140-450); Red Blood Cells 4.46 10^6/uL (4.5-5.90); Red Cell Distribution Width 12.9 % (11.8-14.3)
[2020-08-12 08:14] LABS: BUN/Creatinine Ratio 27.3; Calcium 8.7 mg/dL (8.5-10.1); Potassium 4.1 mmol/L (3.5-5.1)
[2020-08-12] MEDS: POTASSIUM EFFERVESENT TAB 25 MEQ PO SCH (09:33)
[2020-08-12] MEDS: Glucerna Carbsteady SHAKE Vanilla 8oz PO SCH ×3 (09:34→17:50)
[2020-08-12] MEDS: CHOLECALCIFEROL (VITD3) 2,000 UNIT CAP PO SCH (09:34)
[2020-08-12] MEDS: ZINC SULFATE 220mg CAP or TAB PO SCH (09:34)
[2020-08-12] MEDS: ASCORBIC ACID 1,000 MG TAB PO SCH (09:34)
[2020-08-12] MEDS: PANTOPRAZOLE 40 MG TAB PO SCH (09:34)
[2020-08-12] MEDS: DexAMETHasone SOD PHOS 10MG/1ML VIAL INJ IV SCH (09:34)
[2020-08-12] MEDS: INSULIN LANTUS (GLARGINE) 1 /0.01ml (100units/ml) SC SCH (11:34)
[2020-08-12] MEDS ORDERED: CHOL1CAP47 PO (13:04)
[2020-08-12] MEDS ORDERED: ASCO10003 PO (13:04)
[2020-08-12 15:49] VITALS: BP 102/61
[2020-08-12 15:54] VITALS: BP 101/67
== END 2020-08-12 18:13 | disposition home or self-care (01) | DRG 137 ==
LOC: ER 19:28 → EDBD 19:28 → OVERFLOW 19:29 → TELE-WESTW 08-09 15:53
PROVIDERS: ADMIT Family Medicine; ATTEND Internal Medicine Pulmonary Disease
PROC: XW033E5 Introduction of Remdesivir Anti-infective into Peripheral Vein, Percutaneous Approach, New Technology Group 5 (ICD-10-PCS; 2020-07-29)
PROC: 30233L1 Transfusion of Nonautologous Fresh Plasma into Peripheral Vein, Percutaneous Approach (ICD-10-PCS; 2020-07-30)
PROC: XW033H5 Introduction of Tocilizumab into Peripheral Vein, Percutaneous Approach, New Technology Group 5 (ICD-10-PCS; principal; 2020-08-02)
DX: U07.1 COVID-19 (principal); J96.01 Acute respiratory failure with hypoxia; J12.82 Pneumonia due to coronavirus disease 2019; N17.9 Acute kidney failure, unspecified; E11.65 Type 2 diabetes mellitus with hyperglycemia; I10 Essential (primary) hypertension; E87.6 Hypokalemia
CPT/HCPCS: 36415; 36600; 71045; 80048; 80053; 82306; 82728; 82805; 82962; 83036; 83605; 83615; 83735; 83880; 84443; 85007; 85025; 85027; 85379; 86141; 86850; 86900; 86901; 87040; 87426; 93005; 93970; 94640; G0378; J1100; J1815; J3490